=== PATIENT | female | born 2000 | race American Indian/Alaskan Native ===

== ENCOUNTER 2020-07-03 18:38 | Emergency (ER) | payer MEDICAID ==
[2020-07-03 18:46] VITALS: BP 123/69
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
[2020-07-03 20:49] LABS: HCG Qualitative,Urine Negative (Negative)
[2020-07-03 20:51] LABS: Bacteria,Urine 4+ /HPF (Negative); Bilirubin,Urine NEG (Negative); Blood,Urine NEG (Negative); Color,Urine Yellow (Yellow); Mucus,Urine 3+ /HPF; Protein,Urine <15 mg/dL mg/dL (Negative)
--- NOTE | 2020-07-03 20:59 | Cat Scan Report ---
CT head/brain wo con INDICATION / CLINICAL INFORMATION: 20 years Female; headache. TECHNIQUE: Routine CT head without contrast. All CT scans at this location are performed using CT dos e reduction for ALARA by means of automated exposure control. COMPARISON: None. FINDINGS: BRAIN / INTRACRANIAL CONTENTS: No acute hemorrhage, mass effect, midline shift, hydrocephalus, or acu te, large territorial infarct. No chronic infarct or atrophy appreciated. No significant white matter abnormality. CRANIOCERVICAL JUNCTION: No significant abnormality. ORBITS: No significant abnormality of visualized orbits. SINUSES / MASTOIDS: No significant abnormality in the visualized paranasal sinuses or mastoid air kevin ls. ADDITIONAL FINDINGS: None. IMPRESSION: 1. No focal mass, hemorrhage, hydrocephalus, or acute, large territorial infarct. Signer Name: Ezekiel Eduardo MD, III Signed: 07/03/2020 8:54 PM Workstation Name: [id number]
--- NOTE | 2020-07-03 21:48 | XRay Report ---
LEFT ANKLE 3 VIEW(S) INDICATION / CLINICAL INFORMATION: ankle pain COMPARISON: None available. FINDINGS: BONES / JOINT(S): No acute fracture or subluxation. No significant arthritis. SOFT TISSUES: Mild lateral ankle soft tissue swelling. ADDITIONAL FINDINGS: None. Signer Name: Nash Cole MD Signed: 07/03/2020 9:43 PM Workstation Name: [id number]
[2020-07-03] MEDS ORDERED: IBUPROFEN 800 MG TAB PO ONE (22:08)
== END 2020-07-03 22:22 | disposition home or self-care (01) ==
LOC: ED 18:38
DX: S93.402A Sprain of unspecified ligament of left ankle, initial encounter (principal); S00.83XA Contusion of other part of head, initial encounter; Z79.899 Other long term (current) drug therapy; Y04.8XXA Assault by other bodily force, initial encounter; Y93.89 Activity, other specified; Y92.89 Other specified places as the place of occurrence of the external cause; Y99.8 Other external cause status
CPT/HCPCS: 70450; 81001; 81025